=== PATIENT | male | born 1985 | race African-American/Black ===

== ENCOUNTER 2020-11-13 02:05 | Emergency (ER) | payer SELFPAY ==
--- NOTE | 2020-11-13 03:08 | EDPHYS ---
Physician Documentation [facility] Name: Nancy Ibrahim Age: 34 yrs Sex: Male : 1985 Arrival Date: 11/13/2020 Time: 02:11 Bed 9 Private MD: ED Physician Eladio Christina HPI: 11/13 02:49 This 34 yrs old Black Male presents to ER via Ambulatory with complaints of BAT BITE. mh7 02:49 The patient was bitten on the right leg, by a bat, Stepped on bat. Onset: The mh7 symptoms/episode began/occurred just prior to arrival, today. Animal information: Patient/Caregiver unable to provide information related to the animal. The appearance of the animal is unknown Animal's vaccinations are not up to date. Secondary to the bite the patient reports pain, Possible bite. Associated signs and symptoms: Pertinent positives: pain at site, Pertinent negatives: bony tenderness, erythema at site, fever, fluctuance, loss of consciousness, motor deficit, numbness distal to wound, suspected foreign body, swelling at site, tenderness. Severity of symptoms: At their worst the symptoms were mild, earlier today, in the emergency department the symptoms are unchanged. Historical: - Allergies: 02:19 No Known Allergies; wg - Home Meds: 02:19 None [Active]; wg - PMHx: 02:19 None; wg - Immunization history:: Adult Immunizations up to date. - Social history:: Smoking status: Patient denies any tobacco usage or history of. ROS: 02:49 Constitutional: Negative for fever, chills, and weight loss, Eyes: Negative for injury, mh7 pain, redness, and discharge, ENT: Negative for injury, pain, and discharge, Neck: Negative for injury, pain, and swelling, Cardiovascular: Negative for chest pain, palpitations, and edema, Respiratory: Negative for shortness of breath, cough, wheezing, and pleuritic chest pain, Abdomen/GI: Negative for abdominal pain, nausea, vomiting, diarrhea, and constipation, Back: Negative for injury and pain, : Negative for injury, bleeding, discharge, and swelling, Neuro: Negative for headache, weakness, numbness, tingling, and seizure, Psych: Negative for depression, anxiety, suicide ideation, homicidal ideation, and hallucinations, Allergy/Immunology: Negative for hives, rash, and allergies, Endocrine: Negative for neck swelling, polydipsia, polyuria, polyphagia, and marked weight changes, Hematologic/Lymphatic: Negative for swollen nodes, abnormal bleeding, and unusual bruising. Exam: 02:49 Constitutional: This is a well developed, well nourished patient who is awake, alert, mh7 and in no acute distress. Head/Face: Normocephalic, atraumatic. Eyes: Pupils equal round and reactive to light, extra-ocular motions intact. Lids and lashes normal. Conjunctiva and sclera are non-icteric and not injected. Cornea within normal limits. Periorbital areas with no swelling, redness, or edema. Neck: Trachea midline, no thyromegaly or masses palpated, and no cervical lymphadenopathy. Supple, full range of motion without nuchal rigidity, or vertebral point tenderness. No Meningismus. Chest/axilla: Normal chest wall appearance and motion. Nontender with no deformity. No lesions are appreciated. Cardiovascular: Regular rate and rhythm with a normal S1 and S2. No gallops, murmurs, or rubs. Normal PMI, no JVD. No pulse deficits. Respiratory: Lungs have equal breath sounds bilaterally, clear to auscultation and percussion. No rales, rhonchi or wheezes noted. No increased work of breathing, no retractions or nasal flaring. Abdomen/GI: Soft, non-tender, with normal bowel sounds. No distension or tympany. No guarding or rebound. No evidence of tenderness throughout. Back: No spinal tenderness. No costovertebral tenderness. Full range of motion. Skin: Warm, dry with normal turgor. Normal color with no rashes, no lesions, and no evidence of cellulitis. MS/ Extremity: Pulses equal, no cyanosis. Neurovascular intact. Full, normal range of motion. Neuro: Awake and alert, GCS 15, oriented to person, place, time, and situation. Cranial nerves II-XII grossly intact. Motor strength 5/5 in all extremities. Sensory grossly intact. Cerebellar exam normal. Normal gait. Psych: Awake, alert, with orientation to person, place and time. Behavior, mood, and affect are within normal limits. Vital Signs: 02:15 BP 139 / 93; Pulse 80; Resp 18; Temp 98.7; Pulse Ox 100% on R/A; Weight 104.33 kg; wg Height 5 ft. 7 in. (170.18 cm); Pain 310; 02:15 Body Mass Index 36.02 (104.33 kg, 170.18 cm) wg MDM: 03:02 Differential diagnosis: superficial laceration, rabies, Animal bite, bat bite. Rabies 7 Status: no history of rabies immunization. Data reviewed: vital signs, nurses notes. Special discussion: Rabies immunoglobulin and vaccine not available at this hospital nor at the [facility]. Patient advised to go to another facility to receive vaccination. Advised patient to seek immunization as soon as possible.. ED course: Well-appearing, no acute distress, vital signs stable, no focal neurological deficits. Patient advised to seek rabies vaccination soon as possible. Rabies immunoglobulin and vaccine not available at this [facility] nor through [facility]. Discussed that failure to do so may result in disability and/or if infected with rabies. Patient verbalized that he understood this information is presented.. 03:08 Patient medically screened. [facility] Administered Medications: 03:05 Drug: Tetanus-Diphtheria Toxoid Adult 0.5 ml {Log Cutter: [employer]. Exp: ms4 05/02/2022. Lot #: [id number]. } Route: IM; Site: right deltoid; 03:05 Drug: Motrin (ibuprofen) 800 mg Route: PO; ms4 Disposition Summary: 11/13/20 03:08 Discharge Ordered Location: Home [facility] Problem: new [facility] Symptoms: have improved mh Condition: Stable mh7 Diagnosis - Contact with and (suspected) exposure to rabies [facility] Followup: [facility] - With: Private Physician - When: 1 - 2 days - Reason: Worsening of condition, Recheck today's complaints, Continuance of care, Re-evaluation by your physician Followup: [facility] - With: Sonny Mae MD - When: 1 - 2 days - Reason: Worsening of condition, Recheck today's complaints Discharge Instructions: - Discharge Summary Sheet [facility] - Rabies [facility] Forms: - Medication Reconciliation Form [facility] - Thank You Letter [facility] - Antibiotic Education 7 - Prescription Opioid Use [facility] Signatures: Eladio Christina MD MD 7 Charis Cavazos RN RN ms4 Mando Borges RN
--- NOTE | 2020-11-13 03:08 | ER ---
Nurse's Notes [facility] Name: Nancy Ibrahim Age: 34 yrs Sex: Male : 1985 Arrival Date: 11/13/2020 Time: 02:11 Bed 9 Private MD: Diagnosis: Contact with and (suspected) exposure to rabies Presentation: 11/13 02:15 Chief complaint: Patient states: Pt states at approximately 0145 he came home, walked wg in the door and felt like he stepped on a bat that screeched and flew into his right leg biting him on the medial calf area. Pt states he saw the bat on the ground and is certain it was a bat. No signs of broken skin or edema noted in triage. Pt denies any other injuries or complaints. Coronavirus screen: Vaccine status: Patient reports being unvaccinated. At this time, the client does not indicate any symptoms associated with coronavirus-19. Ebola Screen: Patient negative for fever greater than or equal to 101.5 degrees Fahrenheit, and additional compatible Ebola Virus Disease symptoms Patient denies exposure to infectious person. Patient denies travel to an Ebola-affected area in the 21 days before illness onset. Initial Sepsis Screen: Does the patient meet any 2 criteria? No. Patient's initial sepsis screen is negative. Does the patient have a suspected source of infection? No. Patient's initial sepsis screen is negative. Risk Assessment: Do you want to hurt yourself or someone else? Patient reports no desire to harm self or others. Onset of symptoms was November 13, 2020 at 01:45. 02:15 Method Of Arrival: Ambulatory 02:15 Acuity: TIFFANIE 4 Triage Assessment: 02:19 General: Appears in no apparent distress. well developed, well nourished, Behavior is calm, cooperative, appropriate for age. Pain: Complains of pain in right medial mid calf Pain currently is 4 out of 10 on a pain scale. Quality of pain is described as numb. Historical: - Allergies: 02:19 No Known Allergies; wg - Home Meds: 02:19 None [Active]; wg - PMHx: 02:19 None; wg - Immunization history:: Adult Immunizations up to date. - Social history:: Smoking status: Patient denies any tobacco usage or history of. Screenin:37 Abuse screen: Denies threats or abuse. Denies injuries from another. Nutritional ms4 screening: No deficits noted. Tuberculosis screening: No symptoms or risk factors identified. Fall Risk None identified. Assessment: 02:36 Reassessment: Patient appears in no apparent distress at this time. No changes from ms4 previously documented assessment. Patient and/or family updated on plan of care and expected duration. Pain level reassessed. Patient is alert, oriented x 3, equal unlabored respirations, skin warm/dry/pink. General: Appears in no apparent distress. Behavior is calm, cooperative. Pain: Complains of pain in right leg. Musculoskeletal: Reports pain in right leg. Vital Signs: 02:15 BP 139 / 93; Pulse 80; Resp 18; Temp 98.7; Pulse Ox 100% on R/A; Weight 104.33 kg; wg Height 5 ft. 7 in. (170.18 cm); Pain 3/10; 02:15 Body Mass Index 36.02 (104.33 kg, 170.18 cm) wg ED Course: 02:11 Patient arrived in ED. 02:19 Triage completed. wg 02:20 Arm band placed on right wrist. wg 02:34 Eladio Christina MD is Attending Physician. mh7 02:37 Patient has correct armband on for positive identification. ms4 02:37 No provider procedures requiring assistance completed. ms4 03:07 Sonny Mae MD is Referral Physician. 7 03:17 Patient did not have IV access during this emergency room visit. ms4 Administered Medications: 03:05 Drug: Tetanus-Diphtheria Toxoid Adult 0.5 ml {Exercise Instruct: [place]. Exp: ms4 05/02/2022. Lot #: [id number]. } Route: IM; Site: right deltoid; 03:05 Drug: Motrin (ibuprofen) 800 mg Route: PO; ms4 Outcome: 03:08 Discharge ordered by . 7 03:17 Discharged to home ambulatory. ms4 03:17 Condition: stable 03:17 Discharge instructions given to patient, Instructed on discharge instructions, follow up and referral plans. Demonstrated understanding of instructions, follow-up care. 03:18 Patient left the ED. ms4 Signatures: Eladio Christina MD MD [facility] Charis Cavazos RN RN ms4 [place], Mando, RN wg
[2020-11-13] MEDS ORDERED: IBUPROFEN 400 MG TAB ONE (03:21)
[2020-11-13] MEDS ORDERED: TETANUS & DIPHTHERIA TOX,ADULT 0.5 ML VIAL ONE (03:21)
[2020-11-13 03:23] VITALS: BP 139/93; TEMP 98.7; O2SAT 100
== END 2020-11-13 03:18 | disposition home or self-care (01) ==
LOC: ER 02:05
DX: S80.871A Other superficial bite, right lower leg, initial encounter (principal); Z20.3 Contact with and (suspected) exposure to rabies; Z23 Encounter for immunization
CPT/HCPCS: 90471; 90714; 99283